=== PATIENT | female | born 1980 | race Caucasian/White ===

== ENCOUNTER 2016-10-01 11:43 | Emergency (ER) | payer BC ==
[~2016-10-01] VITALS: Ht 154.9 cm; Wt 81.8 kg
[~2016-10-01 11:43] MED LIST: ADIPEX-P37.5 MG PO; BIRTH CONTROL PILL PO; FERROUS SU325 MG/TAB PO; FLEXERIL 1010 MG/TAB PO; MOTRIN 600600 MG/TAB PO; NORCO 325 MG-51 TAB PO; NORCO 325 MG-7.1 TAB PO; PEPCID 20MG TAB20 MG PO; PERCOCET 325 MG1 TA2 PO; PRENATAL1 TA1; PRENATAL1 TA1 PO; SENOKOT S 50 MG1 TAB PO; TUMS500 MG; ZANTAC 150MG T150 MG; ZOFRAN 4MG T4 MG/TAB PO; ZOFRAN ODT4 MG PO
[2016-10-01 11:45] VITALS: BP 140/74; PULSE 93; TEMP 98.6
[2016-10-01] MEDS ORDERED: NORCO 325 MG-51 TAB PO (12:29)
== END 2016-10-01 12:35 | disposition home or self-care (01) ==
LOC: COL.ER 11:43
DX: S50.11XA Contusion of right forearm, initial encounter (principal); W10.9XXA Fall (on) (from) unspecified stairs and steps, initial encounter